=== PATIENT | male | born 1960 | race Caucasian/White ===

== ENCOUNTER 2022-03-01 08:25 | Emergency (ER) | payer SELFPAY ==
[2022-03-01 08:25] VITALS: BP 212/100; PULSE 68; RESP 18; TEMP 36.8; O2SAT 97
[2022-03-01 08:26] VITALS: BP 203/99; PULSE 67; RESP 16; TEMP 36.2; O2SAT 99; BMI 27.2
[2022-03-01 09:07] VITALS: O2SAT 98
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
[2022-03-01] MEDS: Morphine 4 MG/ML Syringe IV (10:01)
== END 2022-03-01 12:23 | disposition home or self-care (01) ==
PROVIDERS: Emergency Provider Emergency Medicine; PCP Physician Assistant; Visit Provider Emergency Medicine
DX: S20.20XA Contusion of thorax, unspecified, initial encounter (principal); F17.210 Nicotine dependence, cigarettes, uncomplicated; V89.2XXA Person injured in unspecified motor-vehicle accident, traffic, initial encounter
CPT/HCPCS: 71046; 71120; 93005; 96374; 99284; A4216

== ENCOUNTER 2025-01-25 13:36 | Inpatient (IN) | payer SELFPAY ==
[2025-01-25] VITALS (10 sets, daily range): BP systolic 129–186; BP diastolic 63–82; PULSE 80–93; RESP 16–20; TEMP 36.7–39; O2SAT 95–100; BMI 27.9
--- NOTE | 2025-01-25 13:59 | RAD_ITS ---
PROCEDURE: CHEST PA AND LATERAL 01/25/2025 REASON FOR EXAM: PRODUCTIVE COUGH, WHEEZING TECHNIQUE: Procedure Code: RADCXR Modality: DX Procedure: CHEST PA AND LATERAL COMPARISON: None. FINDINGS: LUNGS AND PLEURA: Cavity with air-fluid level in the left upper lobe measuring approximately 7.2 x 6.3 cm. No pleural effusion or pneumothorax. HEART AND MEDIASTINUM: The heart size and mediastinal contours are normal. BONES: No acute osseous abnormality. RAD/Chest PA and Lateral IMPRESSION: Left upper lobe cavity with air-fluid level, may represent an abscess, infected bleb or cavitary mass. A contrast-enhanced chest CT is recommended to further evaluate. Reading Location: [id number]
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
[2025-01-25 14:17] LABS: Hematocrit 35.6 % (40-54); Hemoglobin 11.6 g/dL (13.0-16.5); Immature Granulocytes Count 0.110 X10^3/uL (0.0-0.0); Mean Corp Hgb Conc 32.6 g/dL (32-36); Mean Corpuscular Volume 91.3 fL (80-94); Mean Platelet Vol. 9.5 fl (6.2-12.0); NRBC Flagged by Analyzer 0 % (0-5); Platelet Count 516 K/mm3 (150-450); RBC Distribution Width CV 13.4 % (11.6-14.6); RBC Distribution Width SD 45.1 fl (35.1-43.9); Red Blood Count 3.90 M/mm3 (4.6-6.2); White Blood Count 15.8 K/mm3 (4.4-11.0)
[2025-01-25] MEDS: Albuterol 2.5 MG/3 ML VIAL.NEB. INHALATION (14:28)
[2025-01-25 14:43] LABS: AST(SGOT) 17 U/L (<=37); Alanine Aminotransfer ALT/SGPT 14 U/L (<=46); Albumin, Serum 3.4 g/dL (3.4-4.8); Alkaline Phosphatase 83 U/L (40-129); Anion Gap 11 (5-15); BUN 11 mg/dL (4-19); BUN/Creat Ratio 12.9 RATIO (10-20); Calcium,Total 8.8 mg/dL (7.6-11.0); Carbon Dioxide 26.3 mmol/L (21.0-32.0); Chloride 98 mmol/L (98-108); Estimated Creatinine Clearance 106.86 ml/min (50-250); Globulin 3.9 g/dL (2.2-4.2); Glucose 162 mg/dL (70-99); Potassium 3.8 mmol/L (3.3-5.1)
--- NOTE | 2025-01-25 14:50 | CPS ---
at this time pt only wants the duoneb and 1 alb at this time. He does not like that the treatments make him cough. Told him if he wanted the other Alb to let the RN know. RN aware.
--- NOTE | 2025-01-25 15:15 | CM.ED ---
Social work Reason for referral: no PCP/insurance Referral source: case find SW identified patient's lack of PCP and insurance and need for resources. SW entered patient's room, introducing self and role at [facility]. Patient welcomed SW visit and confirmed lacking above resources. Patient accepted [facility] Provider Directory, Damaris Leon information, and how to apply for Medicaid document. Patient denied further resource needs at this time. Nikki Grant, ORDER PROCESSING MANAGER, PRECISION STRUCTURAL METAL FITTER
--- NOTE | 2025-01-25 15:20 | CT_ITS ---
PROCEDURE: CHEST WITH CONTRAST 01/25/2025 REASON FOR EXAM: SHE SUPPOSED TO BE ABSCESS VERSUS NECROTIC MASS W TECHNIQUE: Procedure Code: CTCHW Modality: CT Procedure: CHEST WITH CONTRAST Coronal and Sagittal reconstruction series were provided. CONTRAST: Isovue 370 VOLUME: 96 mL One or more dose reduction techniques were used (e.g., Automated exposure control, adjustment of the mA and/or kV according to patient size, use of iterative reconstruction technique). RADIATION DOSE SUMMARY: CTDlvol: 23 mGy DLP: 467 mGycm COMPARISON: Earlier today's chest CT. FINDINGS: Thyroid gland: Negative. Lungs: Irregular thick walled cavitary mass in the left suprahilar region measures 10.2 by 8.1 cm. Mild adjacent airspace disease. Mild emphysematous changes. No other pulmonary nodules or masses. Pleura: Negative for pleural effusion or pneumothorax. Airways: Imaged bronchi and trachea otherwisenegative. Mediastinum and mike:: Left hilar and suprahilar adenopathy noted as well measures at least 3.1 x 2.6 x 3.3 cm and partially encompasses the left upper lobe bronchus. There are scattered mediastinal lymph nodes largest in the precarinal space short axis dimension 11 mm. Slight right hilar fullness. Heart and Vasculature: Heart normal size. Mild vascular calcifications of the thoracic aorta. Coronary Artery Calcifications: Severe vascular calcifications of the coronary arteries Upper Abdomen: Imaged liver and upper abdomen negative. Hardware: None. Bones: Mild and age-appropriate generative changes of the thoracic spine. CT/Chest WITH Contrast IMPRESSION: Large left upper lobe cavitary mass with extensive left hilar adenopathy as wel l as diffuse mediastinal and right hilar fullness/adenopathy. Different considerations include cavitary necrotic lung neoplasm versus atypica l pneumonia/fungal infection. No evidence of hepatic, adrenal or definitive bony metastatic disease. Reading Location: [place] [id number]
[2025-01-25] MEDS: Ampicillin/Sulbactam 3 GM in 0.9% Normal Saline (100mL MB+) 100 ML IV (17:37)
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
--- OUTSIDE RECORDS SUMMARY | 2025-01-25 18:13 | XMS RPT_ITS | CCD ---
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 Comments Physical Numbness right leg Specialty Diagnoses / Procedures Referred By Anisha t Referred To Contact Diagnoses medically necessary appts only Procedures ANNUAL WELLNESS VISIT, (PPS), SUBSEQUENT VISIT TC medically necessary appts only Arlyn Girard APRN.MANAGER PRODUCT [address] [place] [id number] [facility] [place] [address] Referral ID Status Reason Start Date Expiration Date Visits Requested Visits Authorized [id number] Authorized Patient Cleared - Qualified 100% FAS 09/29/2023 12/28/2023 99 99 Reason Comments Results Reason Onset Date Comments Refill Request 10/27/2023 Reason Onset Date Comments Refill Request 11/18/2023 Reason Onset Date Comments Refill Request 09/13/2024 Care Teams (unrecognized sec tion and content) Welding 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 Relationship Specialty Start Date End Date Arlyn Girard APRN.MANAGER PRODUCT [address] [place] [id number] PCP - General Internal Medicine 03/12/22 Welding Technician Relationship Specialty Start Date End Date Arlyn Girard APRN.MANAGER PRODUCT [facility] [place] [address] PCP - General Internal Medicine 03/12/22 Welding Technician Relationship Specialty Start Date End Date Arlyn Girard APRN.MANAGER PRODUCT [address] [place] [address] PCP - General Internal Medicine 03/12/22 Welding Technician Relationship Specialty Start Date End Date Arlyn Girard APRN.MANAGER PRODUCT [address] [place] [address] PCP - General Internal Medicine 03/12/22 Welding Technician Relationship Specialty Start Date End Date Arlyn Girard APRN.MANAGER PRODUCT [address] [place] [address] PCP - General Internal Medicine 03/12/22 Welding Technician Relationship Specialty Start Date End Date Arlyn Girard APRN.MANAGER PRODUCT [address] [place] [address] PCP - General Internal Medicine 03/12/22 Welding Technician Relationship Specialty Start Date End Date Arlyn Girard APRN.MANAGER PRODUCT [address] [place] [address] PCP - General Internal Medicine 03/12/22 Welding Technician Relationship Specialty Start Date End Date Arlyn Girard APRN.MANAGER PRODUCT [address] [place] [address] PCP - General Internal Medicine 03/12/22 Welding Technician Relationship Specialty Start Date End Date Arlyn Girard APRN.MANAGER PRODUCT [address] [place] [phone] PCP - General Internal Medicine 03/12/22 Welding Technician Relationship Specialty Start Date End Date Arlyn Girard APRN.MANAGER PRODUCT [address] [place] [phone] PCP - General Internal Medicine 03/12/22 Welding Technician Relationship Specialty Start Date End Date Arlyn Girard APRN.MANAGER PRODUCT [address] [place] [address] PCP - General Internal Medicine 03/12/22 Welding Technician Relationship Specialty Start Date End Date Arlyn Girard APRN.MANAGER PRODUCT [address] [place], [place] [address] PCP - General Internal Medicine 03/12/22 Welding Technician Relationship Specialty Start Date End Date Arlyn Girard APRN.MANAGER PRODUCT [address] [place] [address] PCP - General Internal Medicine 03/12/22 FOR RECORDS PERTAINING TO PATIENTS WHO ARE OR HAVE BEEN ENROLLED IN A CHEMICAL DEPENDENCY/SUBSTANCEABUSE PROGRAM, SOME INFORMATION MAY BE OMITTED. This clinical summary was aggregated from multiple sources. Caution should be exercised in using it in the provision of clinical care. This summary normalizes information from multiple sources, and as a consequence, information in this document may materially change the coding, format and clinical context of patient data. In addition, data may be omitted in some cases. CLINICAL DECISIONS SHOULD BE BASED ON THE PRIMARY CLINICAL RECORDS. [employer] [facility]. provides no warranty or guarantee of the accuracy or completeness of information in this document.
[2025-01-25] MEDS: Azithromycin 500 MG in 0.9% Normal Saline (250mL Bag) 250 ML 250 MG IV (18:59)
[2025-01-25] MEDS: 0.9% Normal Saline (250mL Bag) 250 ML IV (19:00)
--- NOTE | 2025-01-25 19:33 | NURSING ---
lab notified of stat blood culture orders
[2025-01-25] MEDS: 0.9% Saline Lock 10 ML Syringe IV ×2 (20:20→22:36)
[2025-01-25] MEDS: Piperacil/Tazobactam 3.375 GM in 0.9% Normal Saline (50mL MB+) 50 ML IV (22:32)
[2025-01-26 02:32] VITALS: BP 145/73; PULSE 66; RESP 16; TEMP 36.7; O2SAT 98
[2025-01-26 05:48] LABS: Hematocrit 32.8 % (40-54); Hemoglobin 10.7 g/dL (13.0-16.5); Immature Granulocytes Count 0.050 X10^3/uL (0.0-0.0); Mean Corp Hgb Conc 32.6 g/dL (32-36); Mean Corpuscular Volume 90.6 fL (80-94); Mean Platelet Vol. 9.2 fl (6.2-12.0); NRBC Flagged by Analyzer 0 % (0-5); Platelet Count 441 K/mm3 (150-450); RBC Distribution Width CV 13.5 % (11.6-14.6); RBC Distribution Width SD 45.3 fl (35.1-43.9); Red Blood Count 3.62 M/mm3 (4.6-6.2); White Blood Count 12.5 K/mm3 (4.4-11.0)
[2025-01-26] MEDS: Piperacil/Tazobactam 3.375 GM in 0.9% Normal Saline (50mL MB+) 50 ML IV ×3 (05:50→22:32)
[2025-01-26 06:27] LABS: Anion Gap 10 (5-15); BUN 9 mg/dL (4-19); BUN/Creat Ratio 15.2 RATIO (10-20); Calcium,Total 8.6 mg/dL (7.6-11.0); Carbon Dioxide 24.1 mmol/L (21.0-32.0); Chloride 103 mmol/L (98-108); Estimated Creatinine Clearance 142.48 ml/min (50-250); Glucose 131 mg/dL (70-99); Potassium 4.2 mmol/L (3.3-5.1)
--- NOTE | 2025-01-26 11:26 | PCM.PN.HOSP ---
Reason for Visit Chief Complaint: Cough and shortness of breath Subjective Subjective Saw patient at bedside this morning. Patient was sitting back comfortably in bed, conversing normally, in no acute distress. Denied any shortness of breath or chest pain at rest. No other acute concerns this morning. Objective Data Objective Data Vital Signs: Vital Signs Temp Pulse Resp BP Pulse Ox O2 Del Method 98.1 F 66 16 145/73 H 98 Room Air 01/26/25 02:32 01/26/25 02:32 01/26/25 02:32 01/26/25 02:32 01/26/25 02:32 01/26/25 02:35 Oxygen Delivery Method Room Air Weight: 93.44 kg Body Mass Index (BMI) 27.9 Intake & Output: Intake and Output for Last 24 Hours 01/24/25 01/25/25 01/26/25 23:59 23:59 23:59 Intake Total 350 / 350 50 / 50 Balance 350 / 350 50 / 50 Lab / Micro Data 01/26/25 05:30 01/26/25 05:30 Labs: Laboratory Results - last 24 hr 01/25/25 14:03: WBC 15.8 H, RBC 3.90 L, Hgb 11.6 L, Hct 35.6 L, MCV 91.3, MCH 29.7, MCHC 32.6, RDW Std Deviation 45.1 H, RDW Coeff of Joni 13.4, Plt Count 516 H, MPV 9.5, Immature Gran % (Auto) 0.700, Neut % (Auto) 84.5 H, Lymph % (Auto) 8.6 L, Maverick % (Auto) 5.1, Eos % (Auto) 0.6, Baso % (Auto) 0.5, Absolute Neuts (auto) 13.4 H, Absolute Lymphs (auto) 1.37, Nucleated RBC % 0, Sodium 135, Potassium 3.8, Chloride 98, Carbon Dioxide 26.3, Anion Gap 11, BUN 11, Creatinine 0.84, Estim Creat Clear Calc 106.86, Est GFR (MDRD) Non-Af 98, BUN/Creatinine Ratio 12.9, Glucose 162 H, Lactic Acid 1.4, Calcium 8.8, Total Bilirubin 0.28, AST 17, ALT 14, Alkaline Phosphatase 83, Total Protein 7.3, Albumin 3.4, Globulin 3.9, Albumin/Globulin Ratio 0.9 01/26/25 05:30: WBC 12.5 H, RBC 3.62 L, Hgb 10.7 L, Hct 32.8 L, MCV 90.6, MCH 29.6, MCHC 32.6, RDW Std Deviation 45.3 H, RDW Coeff of Joni 13.5, Plt Count 441, MPV 9.2, Immature Gran % (Auto) 0.400, Neut % (Auto) 78.1 H, Lymph % (Auto) 12.9 L, Maverick % (Auto) 7.1, Eos % (Auto) 1.0, Baso % (Auto) 0.5, Absolute Neuts (auto) 9.8 H, Absolute Lymphs (auto) 1.62, Nucleated RBC % 0, Sodium 137, Potassium 4.2, Chloride 103, Carbon Dioxide 24.1, Anion Gap 10, BUN 9, Creatinine 0.63 L, Estim Creat Clear Calc 142.48, Est GFR (MDRD) Non-Af 107, BUN/Creatinine Ratio 15.2, Glucose 131 H, Calcium 8.6 Micro: Microbiology 01/26/25 07:30 Nasal Secretion MRSA (PCR) - Final 01/25/25 21:50 Mucosa - Nasopharyngeal Respiratory Panel (PCR) - Final Radiography Diagnostic Testing: Radiology Impression Chest X-Ray 01/25/25 13:59 IMPRESSION: Left upper lobe cavity with air-fluid level, may represent an abscess, infected bleb or cavitary mass. A contrast-enhanced chest CT is recommended to further evaluate. Reading Location: [facility] Chest CT 01/25/25 15:20 IMPRESSION: Large left upper lobe cavitary mass with extensive left hilar adenopathy as well as diffuse mediastinal and right hilar fullness/adenopathy. Different considerations include cavitary necrotic lung neoplasm versus atypical pneumonia/fungal infection. No evidence of hepatic, adrenal or definitive bony metastatic disease. Reading Location: [place] [address] Physical Exam Const alert, oriented x3, no apparent distress and average body habitus Constitutional Narrative: Pleasant upper middle-age male, somewhat unkempt appearing, otherwise sitting back comfortably in bed, conversing normally, in no acute distress. General Appearance: cooperative and comfortable HEENT normocephalic, head/scalp atraumatic, hearing grossly normal bilaterally, nasal mucous membranes and turbinates normal and moist oral mucous membranes Eyes PERRL, EOMs intact bilaterally and conjunctivae normal Neck full ROM Chest inspection of chest normal Resp normal respiratory effort and no use of accessory muscles Resp Narrative: Breathing comfortably on room air at rest. Diminished breath sounds in left upper lung zone, otherwise good air movement throughout with no wheezing noted. Cardio regular rate, regular rhythm, no murmurs and peripheral pulses 2+ throughout GI normal to inspection, nondistended, normoactive bowel sounds, soft to palpation, non-tender and non-distended Back/Spine normal ROM Extremity normal to inspection, full ROM and no pedal edema Skin no rashes or lesions noted Psych mental status grossly normal Assessment & Plan Assessment/Plan (1) Cavitating mass of upper lobe of left lung: PLAN: Plan Patient is a 64-year-old male who presented to [facility] ED on 01/25/2025 with persistent cough with sputum production. 1. Left upper lobe cavitary mass ? Pulmonology following. CT chest on admit showed a large left upper lobe cavitary mass with extensive left hilar adenopathy as well as diffuse mediastinal and right hilar fullness/adenopathy. Patient with leukocytosis to 15,000 on admit and fevers up to 102F noted. Per pulmonology, most concerning for a pulmonary abscess with associated mediastinal and hilar adenopathy. However, an atypical appearing lunacy cannot be fully ruled out. Infectious workup pending. Will treat with IV antibiotics for the next several days and monitor response. Will plan to transition him to a p.o. antibiotic regimen with plan for 3 additional weeks of antibiotic therapy at that time. Will then plan for repeat CT chest to reevaluate the lesion and if not resolved, will plan to discuss bronchoscopy with biopsy at that time. 2. Frequent alcohol use ? Reports drinking 6 to 7 12 ounce beers most days of the week and will occasionally drink or liquor. Denies any history of withdrawal symptoms. CIWA protocol initiated on admission and patient has not triggered CIWA to this point. Continue to monitor. 3. Tobacco dependence ? Currently smoking about half pack of cigarettes daily but has smoked up to 2 packs daily in the past. Denies need for nicotine replacement therapy on admit. Discussed cessation on discharge. 4. Hypertension ? Mildly hypertensive on admit. Continue home lisinopril. 5. Mild normocytic anemia ? Hemoglobin 11.6 on admit, down trended to 10.7 on hospital day 2 after IV fluid resuscitation. No baseline labs available. Iron studies with ferritin, B12 and folate ordered. Follow-up a.m. CBC. DVT prophylaxis: Lovenox CODE STATUS: Full code, verified Expected disposition: Home, TBD Total clinical time spent by myself addressing the patient's medical issues, reviewing all the data, and collaborating with patient's care team: 37 minutes. Charges/Coding Visit Charges Inpatient E&M: 85377 Subs Hosp L2
[2025-01-26 11:34] VITALS: BP 123/67; PULSE 63; RESP 16; TEMP 37; O2SAT 98
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
[2025-01-26] MEDS: FLU VACCINE 2025-26(6MOS UP) 45 MCG/0.5 ML SYRINGE IM (12:38)
--- NOTE | 2025-01-26 12:48 | CASEMGMT ---
KINGSTON ALBARADO Assessment: Face to Face with pt for initial transition planning/care coordination assessment. KINGSTON ALBARADO introduced self and role at [facility], pt voices understanding and consents to assessment. Pt is A&O x4 and answers all questions appropriately at this time. Pt sitting up in bed on RA with dtr at bedside. Pt agreeable to assessment with dtr present. Care providers, pharmacy, and demographics verified/updated. Admitting Dx: CIELO lesion pna vs neoplasm Strata Score: 1 PCP:Denies, pt states he received information in the ER for PCPs. Specialists:Denies Preferred Pharmacy:[facility] Insurance: Self Pay Prescription Benefit: no LNOK: Toma Polk, Living Arrangements: Pt lives with in a single story home with 3 steps to enter with a rail. Pt reports he is I in ADL/IADLs and denies concerns at home. Pt states he works over 40 hours per week. Transportation: Pt drives self and denies concerns with transportation. DME:Denies HHC/SNF: Denies hx of Pt states no concerns with going home at time of dc. Pt states no further concerns/needs. CM to follow. Advised pt to ask CM if any further questions/concerns/needs arise, voices understanding. Pt Goal: Home Plan: Home Pardeep ONOFRE CM
--- NOTE | 2025-01-26 14:43 | CASEMGMT ---
Social Work Pt admitted as self pay. SW met with pt and introduced self and role of SW. Pt confirms he does not have health insurance. Pt denies concerns with affording prescriptions at time of discharge. Pt did meet with Vashti Del [facility] and is over income for assistance programs. Pt does not currently have a PCP. SW discussed this with pt and importance of getting connected for primary care. SW attempted to offer PCP list and info on [facility]. Pt states he was given these resources in the ED. Pt denies any further concerns or needs at this time. ENEIDA Corcoran
[2025-01-26 14:49] VITALS: BP 134/66; PULSE 72; RESP 18; TEMP 36.8; O2SAT 99
[2025-01-26 17:02] LABS: Ferritin 600 ng/mL (37-417); Iron 24 ug/dL (65-175); Iron Binding Capacity,Unsat 164 ug/dL (228-428); Vitamin B12 1067 pg/mL (180-914)
[2025-01-26 18:34] LABS: Iron Binding Capacity,Total 188 ug/dL (250-450)
[2025-01-26 18:35] VITALS: BP 129/61; PULSE 69; RESP 18; TEMP 37; O2SAT 98
[2025-01-26] MEDS: Azithromycin 500 MG in 0.9% Normal Saline (250mL Bag) 250 ML 250 MG IV (21:21)
[2025-01-26 21:24] VITALS: BP 153/73; PULSE 65; RESP 16; TEMP 37.1; O2SAT 100
[2025-01-26] MEDS: MELATONIN 10 MG TABLET PO (21:34)
[2025-01-27 00:24] VITALS: BP 134/68; PULSE 64; RESP 16; TEMP 36.9; O2SAT 96
[2025-01-27] MEDS: Piperacil/Tazobactam 3.375 GM in 0.9% Normal Saline (50mL MB+) 50 ML IV ×3 (05:59→22:48)
[2025-01-27 06:03] VITALS: BP 129/65; PULSE 77; RESP 16; TEMP 36.6; O2SAT 96
--- NOTE | 2025-01-27 08:12 | PN.CC_ITS ---
Assessment & Plan Assessment/Plan (1) 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 Continue IV antimicrobial therapy for today, with tentative plans for discharge tomorrow. 2. At discharge, we will plan to transition the patient to Augmentin and doxycycline to complete an additional 3 weeks of therapy. 3. The patient will need to follow-up in the pulmonary medicine clinic after discharge. We will plan to repeat a CT scan after he has completed his antibiotic treatment course. IMPRESSIONS: 1. Abnormal CT scan/shortness of breath The findings noted on CT imaging the chest, on my review, it is most concerning for a pulmonary abscess with associated mediastinal and hilar adenopathy. However, I cannot definitively rule out the presence of an atypical appearing malignancy. Given that the patient was febrile with an elevated white blood cell count. I would advocate that we proceed with treating him with IV antimicrobials for now. I would then plan to transition him to a p.o. antibiotic regimen, with tentative plans to complete 3 additional weeks of therapy. Following this, a repeat CT chest will be obtained to determine if the lesion is resolving or if additional workup, including bronchoscopy/EBUS needs to be entertained. This note was generated with [employer] dictation software. It may contain incorrect words, spelling, and punctuation that were not noted in checking the note before signing. Subjective Subjective The patient was seen and examined at the bedside this morning. Events from the last 24 hours have been reviewed. The patient is currently afebrile, hemodynamically stable and maintaining appropriate oxygen saturations on room air. The patient reported this morning that he is feeling well. He does believe that the Tessalon Perles have helped with his cough. Objective Data Objective Data The patient's most recent lab work, culture data and imaging studies have all been personally reviewed. Vital Signs: Vital Signs Temp Pulse Resp BP Pulse Ox O2 Del Method 97.9 F 77 16 129/65 H 96 Room Air 01/27/25 06:03 01/27/25 06:03 01/27/25 06:03 01/27/25 06:03 01/27/25 06:03 01/27/25 06:03 Oxygen Delivery Method Room Air Weight: 206 lb Body Mass Index (BMI) 27.9 Intake & Output: Intake and Output for Last 24 Hours 01/25/25 01/26/25 01/27/25 23:59 23:59 23:59 Intake Total 350 / 350 1650 / 1650 500 / 500 Balance 350 / 350 1650 / 1650 500 / 500 Lab / Micro Data Attestation: I reviewed the patient's lab results. 01/26/25 05:30 01/26/25 05:30 Labs: Laboratory Results - last 24 hr 01/26/25 05:30: Hemoglobin A1c 6.3 H, Iron 24 L, TIBC 188 L, Iron Saturation 12.6, Unsaturated IBC 164 L, Ferritin 600 H, Vitamin B12 1067 H Micro: Microbiology 01/26/25 16:38 Urine, Random Legionella Antigen - Final 01/26/25 16:38 Urine, Random Streptococcus pneumoniae Antigen (M - Final 01/26/25 07:30 Nasal Secretion MRSA (PCR) - Final 01/25/25 21:50 Mucosa - Nasopharyngeal Respiratory Panel (PCR) - Final Physical Exam Const alert, oriented x3 and no apparent distress Constitutional Narrative: Sitting upright in bed eating breakfast. General Appearance: cooperative HEENT normocephalic and head/scalp atraumatic Eyes PERRL, EOMs intact bilaterally and conjunctivae normal Neck supple General: trachea midline Chest inspection of chest normal Resp normal respiratory effort Auscultation: diminished lung sounds; Negative for rales, rhonchi or wheezes Cardio regular rate and regular rhythm GI normal to inspection, nondistended, normoactive bowel sounds Extremity no clubbing, cyanosis or edema Skin no rashes or lesions noted Neuro CN's II-XII intact bilaterally, moves all extremities and no focal motor deficits Psych cooperative and affect normal Charges/Coding Visit Charges Inpatient E&M: 09500 Subs Hosp L2
[2025-01-27 09:24] VITALS: BP 120/62; PULSE 60; RESP 18; TEMP 36.6; O2SAT 98
--- NOTE | 2025-01-27 09:41 | PN.HOSP_ITS ---
Reason for Visit Chief Complaint: Cough and shortness of breath Subjective Subjective Saw patient at bedside this morning. Patient was sitting back comfortably in bed and in no acute distress. No new concerns today. Objective Data Objective Data Vital Signs: Vital Signs Temp Pulse Resp BP Pulse Ox O2 Del Method 98 F 60 18 120/62 98 Room Air 01/27/25 09:24 01/27/25 09:24 01/27/25 09:24 01/27/25 09:24 01/27/25 09:24 01/27/25 09:27 Oxygen Delivery Method Room Air Weight: 93.44 kg Body Mass Index (BMI) 27.9 Intake & Output: Intake and Output for Last 24 Hours 01/25/25 01/26/25 01/27/25 23:59 23:59 23:59 Intake Total 350 / 350 1650 / 1650 500 / 500 Balance 350 / 350 1650 / 1650 500 / 500 Lab / Micro Data 01/26/25 05:30 01/26/25 05:30 Labs: Laboratory Results - last 24 hr 01/26/25 05:30: Hemoglobin A1c 6.3 H, Iron 24 L, TIBC 188 L, Iron Saturation 12.6, Unsaturated IBC 164 L, Ferritin 600 H, Vitamin B12 1067 H Micro: Microbiology 01/26/25 16:38 Urine, Random Legionella Antigen - Final 01/26/25 16:38 Urine, Random Streptococcus pneumoniae Antigen (M - Final 01/26/25 07:30 Nasal Secretion MRSA (PCR) - Final 01/25/25 21:50 Mucosa - Nasopharyngeal Respiratory Panel (PCR) - Final Physical Exam Const alert, oriented x3, no apparent distress and average body habitus Constitutional Narrative: Pleasant upper middle-age male, sitting back comfortably in bed, conversing normally, in no acute distress. General Appearance: cooperative and comfortable HEENT normocephalic, head/scalp atraumatic, hearing grossly normal bilaterally, nasal mucous membranes and turbinates normal and moist oral mucous membranes Eyes PERRL, EOMs intact bilaterally and conjunctivae normal Neck full ROM Chest inspection of chest normal Resp normal respiratory effort and no use of accessory muscles Resp Narrative: Breathing comfortably on room air at rest. Diminished breath sounds in left upper lung zone, otherwise good air movement throughout with no wheezing noted. Stable. Cardio regular rate, regular rhythm, no murmurs and peripheral pulses 2+ throughout GI normal to inspection, nondistended, normoactive bowel sounds, soft to palpation, non-tender and non-distended Back/Spine normal ROM Extremity normal to inspection, full ROM and no pedal edema Skin no rashes or lesions noted Psych mental status grossly normal Assessment & Plan Assessment/Plan (1) Cavitating mass of upper lobe of left lung: PLAN: Plan Patient is a 64-year-old male who presented to [facility] ED on 01/25/2025 with persistent cough with sputum production. 1. Left upper lobe cavitary mass ? Pulmonology following. CT chest on admit showed a large left upper lobe cavitary mass with extensive left hilar adenopathy as well as diffuse mediastinal and right hilar fullness/adenopathy. Patient with leukocytosis to 15,000 on admit and fevers up to 102F noted. Per pulmonology, most concerning for a pulmonary abscess with associated mediastinal and hilar adenopathy. However, an atypical appearing lunacy cannot be fully ruled out. Infectious workup negative to this point, blood cultures pending. Plan for treatment IV antibiotics through tomorrow, then if he remains stable will plan for discharge home tomorrow on an additional 3 weeks of p.o. Augmentin and doxycycline. Will then plan for repeat CT chest to reevaluate the lesion and if not resolved, will plan to discuss bronchoscopy with biopsy at that time. 2. Frequent alcohol use ? Reports drinking 6 to 7 12 ounce beers most days of the week and will occasionally drink or liquor. Denies any history of withdrawal symptoms. CIWA protocol initiated on admission and patient has not triggered CIWA to this point. Continue to monitor. 3. Tobacco dependence ? Currently smoking about half pack of cigarettes daily but has smoked up to 2 packs daily in the past. Denies need for nicotine replacement therapy on admit. Discussed cessation on discharge. 4. Hypertension ? Mildly hypertensive on admit. Continue home lisinopril. 5. Mild normocytic anemia ? Hemoglobin 11.6 on admit, down trended to 10.7 on hospital day 2 after IV fluid resuscitation. No baseline labs available. Anemia studies with elevated ferritin of 600 consistent with anemia of chronic disease. No need to monitor further CBCs while inpatient. DVT prophylaxis: Lovenox CODE STATUS: Full code, verified Expected disposition: Home, 1 to 2 days Total clinical time spent by myself addressing the patient's medical issues, reviewing all the data, and collaborating with patient's care team: 35 minutes. Charges/Coding Visit Charges Inpatient E&M: 20081 Subs Hosp L2
[2025-01-27] MEDS: 0.9% Saline Lock 10 ML Syringe IV (14:09)
[2025-01-27 14:17] VITALS: BP 125/69; PULSE 64; RESP 16; TEMP 36.5; O2SAT 97
[2025-01-27 17:48] VITALS: BP 119/65; PULSE 65; RESP 18; TEMP 36.9; O2SAT 95
[2025-01-27] MEDS: Azithromycin 500 MG in 0.9% Normal Saline (250mL Bag) 250 ML 250 MG IV (21:02)
[2025-01-27 21:09] VITALS: BP 148/77; PULSE 58; RESP 16; TEMP 36.5; O2SAT 98
[2025-01-28 02:17] VITALS: BP 133/71; PULSE 61; RESP 16; TEMP 36.6; O2SAT 97
[2025-01-28] MEDS: Piperacil/Tazobactam 3.375 GM in 0.9% Normal Saline (50mL MB+) 50 ML IV (05:14)
[2025-01-28 06:05] LABS: Hematocrit 32.0 % (40-54); Hemoglobin 10.6 g/dL (13.0-16.5); Mean Corp Hgb Conc 33.1 g/dL (32-36); Mean Corpuscular Volume 90.4 fL (80-94); Mean Platelet Vol. 9.8 fl (6.2-12.0); Platelet Count 397 K/mm3 (150-450); RBC Distribution Width CV 13.4 % (11.6-14.6); RBC Distribution Width SD 44.6 fl (35.1-43.9); Red Blood Count 3.54 M/mm3 (4.6-6.2); White Blood Count 9.4 K/mm3 (4.4-11.0)
[2025-01-28 06:52] LABS: Anion Gap 9 (5-15); BUN 11 mg/dL (4-19); BUN/Creat Ratio 19.0 RATIO (10-20); Calcium,Total 8.4 mg/dL (7.6-11.0); Carbon Dioxide 22.3 mmol/L (21.0-32.0); Chloride 106 mmol/L (98-108); Estimated Creatinine Clearance 160.29 ml/min (50-250); Glucose 122 mg/dL (70-99); Potassium 4.0 mmol/L (3.3-5.1)
[2025-01-28 08:15] VITALS: BP 137/79; PULSE 61; RESP 16; TEMP 36.9; O2SAT 97
--- NOTE | 2025-01-28 09:42 | DS.PCM_ITS ---
Providers Date of Admission: 01/25/25 Date of Discharge: 01/28/25 Primary Care Physician: Sonal Primary Care Phys Consultations 01/25/25 18:16 Consult: Application Consultant / Pulmonary Medicine Routine Consulting Provider: [facility] Reason for Consult: cavitary CIELO lesion EMERGENT Consult: No MD Notified: Yes Date Notified: 01/25/25 Time Notified: 18:02 Method of Notification: Verbal Reason For Visit: LEFT UPPER LOBE LESION PNEUMONIA VERSUS NEOPLASM Diagnosis Discharge Diagnosis (1) Cavitating mass of upper lobe of left lung: Status: Acute Code(s): J98.4 - Other disorders of lung Medications at Discharge Home Medications lisinopril 40 mg tablet 40 mg PO DAILY 01/25/25 amoxicillin 875 mg-potassium clavulanate 125 mg tablet 1 tab PO BID 21 days #42 tabs 01/28/25 benzonatate 100 mg capsule 100 mg PO Q4H PRN PRN Cough 5 days #30 caps 01/28/25 doxycycline hyclate 100 mg tablet 100 mg PO BID 21 days #42 tabs 01/28/25 Hospital Course Operations None Procedures EKG and - (Chest x-ray, CT chest) Summary of Care Provided Minutes Spent on Discharge: 38 Hospital Course: Patient is a 64-year-old male who presented to [facility] ED on 01/25/2025 with persistent cough with sputum production. Hospital course as noted below. Patient discharged home in stable condition on 01/28. 1. Left upper lobe cavitary mass ? Pulmonology following. CT chest on admit showed a large left upper lobe cavitary mass with extensive left hilar adenopathy as well as diffuse mediastinal and right hilar fullness/adenopathy. Patient with leukocytosis to 15,000 on admit and fevers up to 102F noted. Per pulmonology, most concerning for a pulmonary abscess with associated mediastinal and hilar adenopathy. However, an atypical appearing lunacy cannot be fully ruled out. Infectious workup negative to this point, blood cultures pending. Treated with broad- spectrum IV antibiotic while inpatient. Stable for discharge home on 01/28 and per pulmonology will treat with an additional 3 weeks of p.o. Augmentin and doxycycline. Will then plan for repeat CT chest to reevaluate the lesion and if not resolved, will plan to discuss bronchoscopy with biopsy at that time. 2. Frequent alcohol use ? Reports drinking 6 to 7 12 ounce beers most days of the week and will occasionally drink or liquor. Denies any history of withdrawal symptoms. CIWA protocol initiated on admission and did not trigger CIWA protocol during the hospitalization. 3. Tobacco dependence ? Currently smoking about half pack of cigarettes daily but has smoked up to 2 packs daily in the past. Denied need for nicotine replacement therapy on admit. Discussed cessation on discharge. 4. Hypertension ? Mildly hypertensive on admit. Continue home lisinopril. 5. Mild normocytic anemia ? Hemoglobin 11.6 on admit, down trended to 10.7 on hospital day 2 after IV fluid resuscitation. No baseline labs available. Anemia studies with elevated ferritin of 600 consistent with anemia of chronic disease. No need to monitor further CBCs while inpatient. Total clinical time spent by myself addressing the patient's medical issues, reviewing all the data, and collaborating with patient's care team: 38 minutes. Physical Exam Const alert, oriented x3, no apparent distress and average body habitus Constitutional Narrative: Pleasant upper middle-age male, sitting back comfortably in bed, conversing normally, in no acute distress. General Appearance: cooperative and comfortable HEENT normocephalic, head/scalp atraumatic, hearing grossly normal bilaterally, nasal mucous membranes and turbinates normal and moist oral mucous membranes Eyes PERRL, EOMs intact bilaterally and conjunctivae normal Neck full ROM Chest inspection of chest normal Resp normal respiratory effort and no use of accessory muscles Resp Narrative: Breathing comfortably on room air at rest. Diminished breath sounds in left upper lung zone, otherwise good air movement throughout with no wheezing noted. Stable. Cardio regular rate, regular rhythm, no murmurs and peripheral pulses 2+ throughout GI normal to inspection, nondistended, normoactive bowel sounds, soft to palpation, non-tender and non-distended Back/Spine normal ROM Extremity normal to inspection, full ROM and no pedal edema Skin no rashes or lesions noted Psych mental status grossly normal Weight / BMI Weight Weight: 93.44 kg Body Mass Index (BMI) 27.9 ABG / Lab / Microbiology Data 01/28/25 05:07 01/28/25 05:07 Laboratory: Laboratory Results - last 24 hr 01/28/25 05:07: WBC 9.4, RBC 3.54 L, Hgb 10.6 L, Hct 32.0 L, MCV 90.4, MCH 29.9, MCHC 33.1, RDW Std Deviation 44.6 H, RDW Coeff of Joni 13.4, Plt Count 397, MPV 9.8, Sodium 138, Potassium 4.0, Chloride 106, Carbon Dioxide 22.3, Anion Gap 9, BUN 11, Creatinine 0.56 L, Estim Creat Clear Calc 160.29, Est GFR (MDRD) Non-Af 111, BUN/Creatinine Ratio 19.0, Glucose 122 H, Calcium 8.4 Microbiology: Microbiology 01/25/25 19:21 Blood Culture (Wb) - Anticubital Right Blood Culture - Preliminary No growth in 48 hours. 01/25/25 19:25 Blood Culture (Wb) - Right Hand Blood Culture - Preliminary No growth in 48 hours. 01/26/25 16:38 Urine, Random Legionella Antigen - Final 01/26/25 16:38 Urine, Random Streptococcus pneumoniae Antigen (M - Final 01/26/25 07:30 Nasal Secretion MRSA (PCR) - Final 01/25/25 21:50 Mucosa - Nasopharyngeal Respiratory Panel (PCR) - Final D/C Instructions DC O2, CPAP, BIPAP Needs Home O2 Discharge instructions: No Meaningful Use Info Meaningful Use Meaningful Use Diagnoses (Choose all that apply): None applicable Discharge Plan Admission Admit Date/Time: 01/25/25 17:50 Primary Reason for Your Visit: shortness of breath and cough Attending Provider: Rashi Yost Primary Care Provider: Care Physician,No Primary Consulting Providers: Bacilio Garcia; Cayden Amaya; Ti Hernandez; Juaquin Oquendo; Hugo Oneal; Alina Peterson; Bubba Holly; Elizabeth Peralta; Tello Morales; Junie Foster; Jesus Corbett; Dhruv Dickson; Sheila Thomas; Hossein Hernandez; Sean Hastings; Mode Banegas; Comfort Mitchell; Rosalina Mendoza; Sandra Alas; Cathleen Arguelles; Chloe Ward; Tanner Barlow; Maria Teresa Youssef; Amna Trotter; Sharon Mcnulty; Lisa Hammer; Maria Teresa Justice; Richie Tian; Eder Hawthorne; Jarad Gruber; Nick Espinosa; Casey Kenyon; Bola Dacosta; Castillo Cabrera; Kyra Esteban; Roma Adams; Wes Pérez; Andres Julio; Oz Benedict; Rolan Barron; Neftaly Ruvalcaba; Sae Levi; Abhishek Reece; Nicole Gonzalez NP; Marlene Carpenter; Jordyn Diamond Discharge Orders/Prescriptions Prescriptions: New benzonatate 100 mg Capsule 100 mg PO Q4H PRN PRN (Reason: Cough) 5 Days Qty: 30 0RF amoxicillin-pot clavulanate 875-125 mg tablet 1 tab PO BID 21 Days Qty: 42 0RF doxycycline hyclate 100 mg tablet 100 mg PO BID 21 Days Qty: 42 0RF Continued lisinopril 40 mg tablet 40 mg PO DAILY Referrals / Follow Up: Juaquin Oquendo DO [Med Staff - Active Staff, Pulmonary Medicine] Care Physician,No Primary [Primary Care Provider, Medical] Disposition Disposition (needs filled in before D/C Order can be placed): Home, Self Care Charges/Coding Visit Charges Inpatient E&M: 18948 Disch Hosp >30min
--- NOTE | 2025-01-28 09:42 | DCINST_ITS ---
Discharge Instructions DC O2, CPAP, BIPAP needs Home O2 Discharge instructions: No Dressing / Incision Discharge Activity: No Restrictions Follow Up Care Test Results: Test results from this visit will be discussed in further detail at your follow- up appointment, if applicable. Discharge Plan Admission Admit Date/Time: 01/25/25 17:50 Primary Reason for Your Visit: shortness of breath and cough Attending Provider: Rashi Yost Primary Care Provider: Care Physician,No Primary Consulting Providers: Bacilio Garcia; Cayden Amaya; Ti Hernandez; Juaquin Oquendo; Hugo Oneal; Alina Peterson; Bubba Holly; Elizabeth Peralta; Tello Morales; Junie Foster; Jesus Corbett; Dhruv Dickson; Sheila Thomas; Hossein Hill; Sean Hastings; Mode Banegas; Comfort Mitchell; Rosalina Mendoza; Sandra Alas; Cathleen Arguelles; Chloe Ward; Tanner Barlow; Maria Teresa Youssef; Amna Trotter; Sharon Mcnulty; Lisa Hammer; Maria Teresa Justice; Richie Tian; Eder Hawthorne; Jarad Gruber; Nick Espinosa; Kostas,Casey; Praneeth,Bola; Castillo Cabrera; Kyra Esteban; Roma Adams; Elisa,Samestella; Andres Julio; Pancroderick,Oz; Turfe,Rolan; Jordon,Neftaly; Amita,Sae; Abhishek Reece; Nicole Gonzalez NP; Marlene Carpenter; Jordyn Diamond Discharge Orders/Prescriptions Prescriptions: New benzonatate 100 mg Capsule 100 mg PO Q4H PRN PRN (Reason: Cough) 5 Days Qty: 30 0RF amoxicillin-pot clavulanate 875-125 mg tablet 1 tab PO BID 21 Days Qty: 42 0RF doxycycline hyclate 100 mg tablet 100 mg PO BID 21 Days Qty: 42 0RF Continued lisinopril 40 mg tablet 40 mg PO DAILY Referrals / Follow Up: Juaquin Oquendo DO [Med Staff - Active Staff, Pulmonary Medicine] Care Physician,No Primary [Primary Care Provider, Medical] Disposition Disposition (needs filled in before D/C Order can be placed): Home, Self Care
--- NOTE | 2025-01-28 10:53 | PHA.DC.MR.R ---
Pharmacy [place] Med Reconciliation Pharmacy Service has performed discharge medication reconciliation for this patient. The patient's discharge medication list was reviewed for discrepancies and discrepancies were resolved. Medications at Discharge Home Medications lisinopril 40 mg tablet 40 mg PO DAILY 01/25/25 amoxicillin 875 mg-potassium clavulanate 125 mg tablet 1 tab PO BID 21 days #42 tabs 01/28/25 benzonatate 100 mg capsule 100 mg PO Q4H PRN PRN Cough 5 days #30 caps 01/28/25 doxycycline hyclate 100 mg tablet 100 mg PO BID 21 days #42 tabs 01/28/25
[2025-01-28 15:08] LABS: Folate, Hemolysate Test 475.0 ng/mL (Not Estab.); Folate, RBC (Hct) Test 32.4 % (37.5-51.0); Folates, RBC Test 1466 ng/mL (>498)
== END 2025-01-28 10:45 | disposition home or self-care (01) | DRG 206 ==
LOC: ED 14:04 → MS3 18:11
PROVIDERS: Admitting Provider Internal Medicine; Emergency Provider Emergency Medicine; Visit Provider Hospitalist
DX: J98.4 Other disorders of lung (principal); D63.8 Anemia in other chronic diseases classified elsewhere; I10 Essential (primary) hypertension; D72.829 Elevated white blood cell count, unspecified; F17.210 Nicotine dependence, cigarettes, uncomplicated; F10.90 Alcohol use, unspecified, uncomplicated; R73.9 Hyperglycemia, unspecified; Z79.899 Other long term (current) drug therapy
CPT/HCPCS: 36415; 71046; 71260; 80048; 80053; 82607; 82728; 82747; 83036; 83540; 83550; 83605; 85014; 85025; 85027; 87040; 87449; 87633; 87641; 94640; 94668; 99285; 99406; Q9967; A4216; J0295

== ENCOUNTER 2025-02-08 12:37 | Emergency (ER) | payer SELFPAY ==
[2025-02-08 12:40] VITALS: BP 155/90; PULSE 94; RESP 16; TEMP 36.4; O2SAT 99; BMI 26.0
[2025-02-08 13:02] VITALS: O2SAT 97
--- NOTE | 2025-02-08 13:33 | RAD_ITS ---
PROCEDURE: CHEST 1 VIEW (PORTABLE) 02/08/2025 REASON FOR EXAM: COUGH, HEMEOPTYSIS TECHNIQUE: Frontal view of the chest. COMPARISON: 01/25/2025. FINDINGS: Increased opacity of the left lung apex which may represent a cavitary mass. No other consolidation. No acute osseous abnormalities. The heart is normal in size. RAD/Chest 1 View (Portable) IMPRESSION: Pulmonary findings as above. Reading Location: [id number]
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
[2025-02-08 13:41] VITALS: BP 138/90; PULSE 85; RESP 17; TEMP 36.8; O2SAT 97
[2025-02-08 14:00] VITALS: BP 148/81; PULSE 81; RESP 17; TEMP 36.8; O2SAT 95
[2025-02-08 14:01] LABS: Hematocrit 36.9 % (40-54); Hemoglobin 12.4 g/dL (13.0-16.5); Immature Granulocytes Count 0.040 X10^3/uL (0.0-0.0); Mean Corp Hgb Conc 33.6 g/dL (32-36); Mean Corpuscular Volume 88.5 fL (80-94); Mean Platelet Vol. 9.9 fl (6.2-12.0); NRBC Flagged by Analyzer 0 % (0-5); Platelet Count 346 K/mm3 (150-450); RBC Distribution Width CV 13.7 % (11.6-14.6); RBC Distribution Width SD 44.3 fl (35.1-43.9); Red Blood Count 4.17 M/mm3 (4.6-6.2); White Blood Count 11.0 K/mm3 (4.4-11.0)
[2025-02-08 14:15] LABS: Anion Gap 11 (5-15); BUN 8 mg/dL (4-19); BUN/Creat Ratio 13.3 RATIO (10-20); Calcium,Total 9.2 mg/dL (7.6-11.0); Carbon Dioxide 24.2 mmol/L (21.0-32.0); Chloride 103 mmol/L (98-108); Estimated Creatinine Clearance 136.05 ml/min (50-250); Glucose 97 mg/dL (70-99); Potassium 4.0 mmol/L (3.3-5.1)
[2025-02-08 15:01] VITALS: BP 148/80; PULSE 81; RESP 14; TEMP 36.9; O2SAT 95
--- OUTSIDE RECORDS SUMMARY | 2025-02-08 19:02 | XMS RPT_ITS | CCD ---
Author Organization [facility] Care Team Providers Care Dress Marker Name Role Phone Shaji Arlyn TOLEDO Primary Care Provider SERENA LOWERY Referring Unavailable GIGI BRICE Primary Care Unavailable MISAEL BRICEA Chen Primary Care Unavailable SERENA LOWERY Attending Unavailable Marlene Carpenter Attending Unavailable Care Physician, No Primary Referring Unava ilable Care Physician, No Primary Primary Care Unava ilable Jordyn Diamond Admitting Unavailable Rashi Yost Attending Unavailable Care Physician, No Primary Primary Care Unava ilable Bacilio Garcia Consulting Unavailable Cayden Amaya Consulting Unavailable Ti Hernandez Consulting Unavailable Juaquin Oquendo Consulting Unavailable Donna Oneal Consulting Unavailable Alina Peterson Consulting Unavailable Bubba Holly Consulting Unavailable Elizabeth Peralta Consulting Unavailable Tello Morales Consulting Unavailable Junie Foster Consulting Unavailab Jesus Ambrocio Consulting Unavailable Dhruv Dickson Consulting Unavailable Sheila Thomas Consulting Unavailable Hossein Galindo Consulting UnavailSean More Consulting Unavailable Mode Banegas Consulting Unavailable Comfort Mitchell Consulting Unavailable Rosalina Mendoza Consulting Unavailable Sandra Alas Consulting Unavailable Cathleen Arguelles Consulting Unavailable Sylvia Mustafizsean Consulting UnavailTanner Gurrola Consulting Unavailable Maria Teresa Youssef Consulting Unavailable Amna Trotter Consulting Unavailable Sharon Mcnulty Consulting Unavailable Lisa Hammer Consulting Unavailable Maria Teresa Justice Consulting Unavailable Richie Tian Consulting Unavailable Christoph Eder Consulting Unavailable Jarad Gruber Consulting Unavailable Nick Holloway Consulting Unav ailable Kostas, Casey Consulting Unavailable Dhesi, Bola Consulting Unavailable Cabrera, Keshajoy Consulting Unavailable Malcom, Soleyah Consulting Unavailable Hegab, Roma Consulting Unavailable Mawari, Samih Consulting Unavailable Fernstrom, Andres Consulting Unavailable Panchabhai, Oz Consulting Unavailable Turfe, Rolan Consulting Unavailable Jordon, Neftaly Consulting Unavailable Kuppuswamy, Vasanthan Consulting UnavailAbhishek Nicole Consulting Unavailable Lisa YANEZ, Nicole Consulting Unavailable Marlene Carpenter Consulting Unavailable Jordyn Dimaond Consulting Unavailable Rashi Yost Consulting Unavailable Rashi Yost Attending Unavailable Bacilio Garcia Consulting Unavailable Jordyn Diamond Admitting Unavailable Care Physician, No Primary Primary Care Unava ilable Cayden Amaya Consulting Unavailable Ti Hernandez Consulting Unavailable Juaquin Oquendo Consulting Unavailable Donna Oneal Consulting Unavailable Alina Peterson Consulting Unavailable Bubba Holly Consulting Unavailable Elizabeth Peralta Consulting Unavailable Tello Morales Consulting Unavailable Junie Foster Consulting UnavailJesus Tavares Consulting Unavailable Dhruv Dickson Consulting Unavailable Sheila Thomas Consulting Unavailable Hossein Galindo Consulting UnavailSean More Consulting Unavailable Mode Banegas Consulting Unavailable Comfort Mitchell Consulting Unavailable Rosalina Mendoza Consulting Unavailable Sandra Alas Consulting Unavailable Blane Cathleen Consulting Unavailable Sylvia Mustafizur Consulting UnavailTanner Gurrola Consulting Unavailable Mikael, Morel Consulting Unavailable Amna Trotter Consulting Unavailable Sharon Mcnulty Consulting Unavailable Lisa Hammer Consulting Unavailable Vinh, Morel Consulting Unavailable Richie Tian Consulting Unavailable Christoph, Eder Consulting Unavailable Jarad Gruber Consulting Unavailable Nick Holloway Consulting Unav ailable Kostas, Casey Consulting Unavailable Dhesi, Bola Consulting Unavailable Cabrera, Sujoy Consulting Unavailable Malcom, Soleyah Consulting Unavailable Hegab, Roma Consulting Unavailable Mawari, Samih Consulting Unavailable Fernstrom, Andres Consulting Unavailable Panchabhai, Oz Consulting Unavailable Turfe, Rolan Consulting Unavailable Jordon, Neftaly Consulting Unavailable Kuppuswamy, Vasanthan Consulting UnavailAbhishek Nicole Consulting Unavailable Lisa CHIEF SERVICE OBSERVER, Nicole Consulting Unavailable Marlene Carpenter Consulting Unavailable Jordyn Diamond Consulting Unavailable Jordyn Diamond Attending Unavailable Juaquin Oquendo Attending Unavailable Jordyn Diamond Referring Unavailable Medications Current Medications Medication Drug Class(es) [...] Benign essential hypertension; Translations: [Essential (primary) hypertension] Onset: 02-07-2025 Chronic Fever of unknown origin (1 source) Fever, unspecified; Translations: [Fever, unspecified fever cause] Onset: 01-07-2025 Episodic Nonspecific chest pain (3 sources) Pain of sternum; Translations: [Other chest pain] Episodic Nutritional deficiencies (1 source) Vitamin D [...] [Shortness of breath] Onset: 01-07-2025 Episodic Other lower respiratory disease (2 sources) Other disorders of lung; Translations: [Other disorders of lung] Onset: 02-07-2025 Episodic Other nervous system disorders (3 sources) [...] [Family history of diabetes mellitus] 10-20-2007 Episodic Residual codes; unclassified (2 sources) Tobacco use; Translations: [Tobacco use] Onset: 02-07-2025 Episodic Spondylosis; intervertebral disc disorders; other back [...] Name Value Interpretation Reference Range Facil ity Culture, Blood (WB)on 2024 CUB List Antibiotics Last 48 Hours? see MAR blood cultures x2 . temp is 102.2 No growth in 5 days. [facility] Comment on above: Performed By: #### M 300.4600, M300.4500 #### [facility] [place], [address] CUB List Antibiotics Last 48 Hours? see MAR blood cultures x2. temp 102.2 No growth in 5 days. Normal [facility] Comment on above: Performed By: #### M 200.1000 #### [facility] [address] [place], [address] Basic Metabolic Profile (BMP )on 01-30-2025 BUN Normal -19 [facility] Comment on above: Result Comment: Canc elled via OM: Order cancelled - Patient discharged Performed By: #### M 300.4600, M300.4500 #### [facility] [address] [place], [address] BUN/CRE Normal 10- [facility] Comment on above: Result Comment: Canc elled via OM: Order cancelled - Patient discharged Performed By: #### M 300.4600, M300.4500 #### [facility] [address] [place], [address] Calcium Normal 7.6-11.0 [facility] Comment on above: Result Comment: Canc elled via OM: Order cancelled - Patient discharged Performed By: #### M 300.4600, M300.4500 #### [facility] [address] [place], [address] CL Normal 98-108 [facility] Comment on above: Result Comment: Canc elled via OM: Order cancelled - Patient discharged Performed By: #### M 300.4600, M300.4500 #### [facility] [address] [place], [address] CO2 Normal 21.0-32.0 [facility] Comment on above: Result Comment: Canc elled via OM: Order cancelled - Patient discharged Performed By: #### M 300.4600, M300.4500 #### [facility] [address] [place], [address] CREAT,SERUM Normal 0.70-1.20 [facility] Comment on above: Result Comment: Canc elled via OM: Order cancelled - Patient discharged Performed By: #### M 300.4600, M300.4500 #### [place] [facility] [address] [place], [address] eGFR Normal >60 [facility] Comment on above: Result Comment: Canc elled via OM: Order cancelled - Patient discharged Performed By: #### M 300.4600, M300.4500 #### [facility] [address] [place], [address] GAP Normal 5-15 [facility] Comment on above: Result Comment: Canc elled via OM: Order cancelled - Patient discharged Performed By: #### M 300.4600, M300.4500 #### [facility] [address] [place], [address] GLU Normal 70-99 [facility] Comment on above: Result Comment: Canc elled via OM: Order cancelled - Patient discharged Performed By: #### M 300.4600, M300.4500 #### [facility] [address] [place], [address] Potassium Normal 3.3-5.1 [facility] Comment on above: Result Comment: Canc elled via OM: Order cancelled - Patient discharged Performed By: #### M 300.4600, M300.4500 #### [facility] [address] [place], [address] Basic Metabolic Profile (BMP) Normal 133-145 [facility] Comment on above: Result Comment: Canc elled via OM: Order cancelled - Patient discharged Performed By: #### M 300.4600, M300.4500 #### [facility] [address] [place], [address] CBC-Complete Blood Cnt No Di ffon 01-30-2025 HCT Normal 40-54 [facility] Comment on above: Result Comment: Canc elled via OM: Order cancelled - Patient discharged Performed By: #### M 300.4600, M300.4500 #### [facility] [address] [place], [address] HGB Normal 13.0-16.5 [facility] Comment on above: Result Comment: Canc elled via OM: Order cancelled - Patient discharged Performed By: #### M 300.4600, M300.4500 #### [facility] [address] [place], [address] MCH Normal 27.0-32.0 [facility] Comment on above: Result Comment: Canc elled via OM: Order cancelled - Patient discharged Performed By: #### M 300.4600, M300.4500 #### [facility] [address] [place], [address] MCHC Normal 32-36 [facility] Comment on above: Result Comment: Canc elled via OM: Order cancelled - Patient discharged Performed By: #### M 300.4600, M300.4500 #### [facility] [address] [place], [address] MCV Normal 80-94 [facility] Comment on above: Result Comment: Canc elled via OM: Order cancelled - Patient discharged Performed By: #### M 300.4600, M300.4500 #### [facility] [address] [place], [address] PLT Normal 150-450 [facility] Comment on above: Result Comment: Canc elled via OM: Order cancelled - Patient discharged Performed By: #### M 300.4600, M300.4500 #### [facility] [address] [place], [address] RBC Normal 4.6-6.2 [facility] Comment on above: Result Comment: Canc elled via OM: Order cancelled - Patient discharged Performed By: #### M 300.4600, M300.4500 #### [facility] [address] [place], [address] RDW CV Normal 11.6-14.6 [facility] Comment on above: Result Comment: Canc elled via OM: Order cancelled - Patient discharged Performed By: #### M 300.4600, M300.4500 #### [facility] [address] [place], [address] RDW SD Normal 35.1-43.9 [facility] Comment on above: Result Comment: Canc elled via OM: Order cancelled - Patient discharged Performed By: #### M 300.4600, M300.4500 #### [facility] [address] [place], [address] WBC Normal 4.4-11.0 [facility] Comment on above: Result Comment: Canc elled via OM: Order cancelled - Patient discharged Performed By: #### M 300.4600, M300.4500 #### [facility] [address] [place], [address] Basic Metabolic Profile (BMP )on 01-28-2025 BUN/CRE 19.0 RATIO Normal - [facility] Comment on above: Performed By: #### L 500.2500 #### [facility] [address] [place], [address] Calcium [Mass/Vol] 8.4 mg/dL Normal 7.6-11.[address] [facility] Comment on above: Performed By: #### L 500.2500 #### [facility] [address] [place], [address] Chloride [Moles/Vol] 106 mmol/L Normal 98-108 [facility] Comment on above: Performed By: #### L 500.2500 #### [facility] [address] [place], [address] CO2 [Moles/Vol] 22.3 mmol/L Normal 21.0-32.0 [facility] Comment on above: Performed By: #### L 500.2500 #### [facility] [address] [place], [address] Creatinine [Mass/Vol] 0.56 mg/dL Low 0.70-1.20 [facility] Comment on above: Performed By: #### L 500.2500 #### [facility] [address] [place], [address] ECRCL 160.29 ml/min Normal 50-250 [facility] Comment on above: Performed By: #### L 500.2500 #### [facility] [address] [place], [address] GAP 9 Normal 5-15 [facility] Comment on above: Performed By: #### L 500.2500 #### [facility] [address] [place], [address] GFR/1.73 sq M.predicted among non-blacks MDRD (S/P/Bld) [Vol rate/Area] 111 mL/min/{1.73_m2} Normal >60 [facility] Comment on above: Result Comment: mL/m in/1.73m2 CKD-EPI Creatinine Equation (2020) Performed By: #### L 500.2500 #### [facility] [address] [place], [address] Glucose [Mass/Vol] 122 mg/dL High 70-[address] [facility] Comment on above: Performed By: #### L 500.2500 #### [facility] [address] [place], [address] Potassium [Moles/Vol] 4.0 mmol/L Normal 3.3-5.1 [facility] Comment on above: Performed By: #### L 500.2500 #### [facility] [address] [place], [address] Sodium [Moles/Vol] 138 mmol/L Normal 133-[address] [facility] Comment on above: Performed By: #### L 500.2500 #### [facility] [address] [place], [address] Urea nitrogen [Mass/Vol] 11 mg/dL Normal 4-19 [facility] Comment on above: Performed By: #### L 500.2500 #### [facility] [address] [place], [address] CBC-Complete Blood Cnt No Di ffon 01-28-2025 Erythrocyte distribution width (RBC) [Ratio] 13.4 % Normal 11.6-14.6 [facility] Comment on above: Performed By: #### L 100.0500 #### [facility] [address] [place], [address] Hematocrit (Bld) [Volume fraction] 32.0 % Low 40-54 [facility] Comment on above: Performed By: #### L 100.0500 #### [facility] [address] [place], [address] Hemoglobin (Bld) [Mass/Vol] 10.6 g/dL Low 13.0-16.5 [facility] Comment on above: Performed By: #### L 100.0500 #### [facility] [address] [place], [address] MCH (RBC) [Entitic mass] 29.9 pg Normal 27.0-32.0 [facility] Comment on above: Performed By: #### L 100.0500 #### [facility] [address] [place], [address] MCHC (RBC) [Mass/Vol] 33.1 g/dL Normal 32-36 [facility] Comment on above: Performed By: #### L 100.0500 #### [facility] [address] [place], [address] MCV (RBC) [Entitic vol] 90.4 fL Normal 80-94 [facility] Comment on above: Performed By: #### L 100.0500 #### [facility] [address] [place], [address] Platelet mean volume (Bld) [Entitic vol] 9.8 fL Normal 6.2-12.0 [facility] Comment on above: Performed By: #### L 100.0500 #### [facility] [address] [place], [address] Platelets (Bld) [#/Vol] 397 10*3/uL Normal 150-450 [facility] Comment on above: Performed By: #### L 100.0500 #### [facility] [address] [place], [address] RBC (Bld) [#/Vol] 3.54 10*6/uL Low 4.6-6.2 [facility] Comment on above: Performed By: #### L 100.0500 #### [facility] [address] [place], [address] RDW SD 44.6 fl High 35.1-43.9 [facility] Comment on above: Performed By: #### L 100.0500 #### [facility] [address] [place], [address] WBC (Bld) [#/Vol] 9.4 10*3/uL Normal 4.4-11.[address] [facility] Comment on above: Performed By: #### L 100.0500 #### [facility] [address] [place], [address] Discharge Instructionon 01-06 Discharge Instruction [facility] Medical Records Department [address] [place] [address] Instructions for Home/Discharge Instructions 01/28/25 0942 MR#: [id number] Acct: [id number] Name: DONNA PRADO Rep #: [id number] : 1960 64 From: Rashi Yost DO PCP: Gurvinder Physician,Sonal Primary Status:ADM IN Discharge Instructions DC O2, CPAP, BIPAP needs Home O2 Discharge instructions: No Dressing / Incision Discharge Activity: No Restrictions Follow Up Care Test Results: Test results from this visit will be discussed in further detail at your follow-up appointment, if applicable. Discharge Plan Admission Admit Date/Time: 01/25/25 17:50 Primary Reason for Your Visit: shortness of breath and cough Attending Provider: Rashi Yost Primary Care Provider: Gurvinder Physician,No Primary Consulting Providers: Bacilio Garcia; Cayden Amaya; Ti Hernandez; Juaquin Oquendo; Donna Oneal; Alina Peterson; Bubba Holly; Elizabeth Peralta; Tello Morales; Rylie Foster; Jesus Corbett; Dhruv Dickson; Sheila Thomas; Hossein Galindo ; Sean Hastings; Mode Banegas; Comfort Mitchell; Rosalina Mendoza; Sandra Alas; Cathleen Arguelles; Chloe Ward ; Tanner Barlow; Maria Teresa Youssef; Amna Trotter; Sharon Mcnulty; Lisa Hammer; Maria Teresa Justice; Richie Tian; Eder Hawthorne; Jarad Gruber; Edson Holloway; Casey Kenyon; Bola Dacosta; Castillo Cabrera; Eulalia,Kyra; Bryan,Roma; Majose,Samih; Andres Julio; Pancroderick,Oz; Turfe,Rolan; Neftaly Ruvalcaba; Sae Levi ; Abhishek Reece; Nicole Gonzalez NP; Marlene Carpenter; Jordyn Diamond Discharge Orders/Prescriptions Prescriptions: New benzonatate 100 mg Capsule 100 mg PO Q4H PRN PRN (Reason: Cough) 5 Days Qty: 30 0RF amoxicillin-pot clavulanate 875-125 mg tablet 1 tab PO BID 21 Days Qty: 42 0RF doxycycline hyclate 100 mg tablet 100 mg PO BID 21 Days Qty: 42 0RF Continued lisinopril 40 mg tablet 40 mg PO DAILY Referrals / Follow Up: Juaquin Oquendo DO [Med Staff - Active Staff, Pulmonary Medicine] Care Physician,No Primary [Primary Care Provider, Medical] Disposition Disposition (needs filled in before D/C Order can be placed): Home, Self Care 01/28/25 0907 Rashi Hernadezsurendra PALACIO CC: CHIEF SERVICE OBSERVER-C iNcole Gonzalez; Dr. Cayden Amaya MD; Dr. Bacilio Garcia MD; Dr. Ti Hernandez MD; Dr. Donna Oneal MD; Dr. Juaquin Oquendo DO; Dr. Bubba Holly MD; Dr. Alina Peterson DO; Dr. Elizabeth Peralta MD; Dr. Tello Morales MD; Dr. Jesus Corbett MD; Dr. Comfort Mitchell MD; Dr. Sean Hastings MD; Dr. Dhruv Dickson MD; Dr. Sheila Thomas MD; Dr. Hossein Galindo MD; Dr. Mode Banegas MD; Dr. Rosalina Mendoza MD; Dr. Sandra Alas MD; Dr. Cathleen Arguelles MD; Dr. Sharon Mcnulty MD; Dr. Amna Trotter MD; Dr. Tanner Barlow MD; Dr. Lisa Hammer DO; Dr. Maria Teresa Youssef MD; Dr. Maria Teresa Justice MD; Dr. Chloe Ward DO; Dr. Richie Tian DO; Dr. Jordyn Diamond MD; Dr. Jaard Gruber MD; Dr. Eder Hawthorne MD; Dr. Nick Holloway; Dr. Casey Kenyon MD; Dr. Wes Pérez MD; Dr. Roma Adams MD; Dr. Kyra Esteban MD; Dr. Castillo Cabrera MD; Dr. Bola Dacosta DO; Dr. Oz Benedict MD; Dr. Rolan Barron MD; Dr. Andres Julio DO; Dr. Sea Levi MD; Dr. Neftaly Ruvalcaba MD; Dr. Abhishek Reece MD; Dr. Junie Foster MD; Marlene Carpenter NP; No Primary Care Physician Signed Normal [facility] Folates, RBCon 01-28-2025 Fol.,Hemolysate 475.0 ng/mL Normal Not Estab. [facility] Comment on above: Order Comment: ok to add on Performed By: #### L 3100.1725 #### [facility] [address] [place], [address] Folate, RBC 1466 ng/mL Normal >498 [facility] Comment on above: Order Comment: ok to add on Result Comment: Perf ormed at: - [facility] [address] [id number] Information Director: Hernandez Silva PhD, Phone: [phone] Performed By: #### L 3100.1725 #### [facility] [address] [place], [address] Hematocrit (Bld) [Volume fraction] 32.4 % Low 37.5-51.0 [facility] Comment on above: Order Comment: ok to add on Performed By: #### L 3100.1725 #### [facility] [address] [place], [address] Basic Metabolic Profile (BMP )on 01-26-2025 BUN/CRE 15.2 RATIO Normal 10-20 [facility] Comment on above: Performed By: #### L 500.2500, L100.0100 #### [facility] [address] [place], [address] Calcium [Mass/Vol] 8.6 mg/dL Normal 7.6-11.[address] [facility] Comment on above: Performed By: #### L 500.2500, L100.0100 #### [facility] [address] [place], [address] Chloride [Moles/Vol] 103 mmol/L Normal 98-108 [facility] Comment on above: Performed By: #### L 500.2500, L100.0100 #### [facility] [address] [place], [address] CO2 [Moles/Vol] 24.1 mmol/L Normal 21.0-32.0 [facility] Comment on above: Performed By: #### L 500.2500, L100.0100 #### [facility] [address] [place], [address] Creatinine [Mass/Vol] 0.63 mg/dL Low 0.70-1.20 [facility] Comment on above: Performed By: #### L 500.2500, L100.0100 #### [facility] [address] [place], [address] ECRCL 142.48 ml/min Normal 50-250 [facility] Comment on above: Performed By: #### L 500.2500, L100.0100 #### [facility] [address] [place], [address] GAP 10 Normal 5-15 [facility] Comment on above: Performed By: #### L 500.2500, L100.0100 #### [facility] [address] [place], [address] GFR/1.73 sq M.predicted among non-blacks MDRD (S/P/Bld) [Vol rate/Area] 107 mL/min/{1.73_m2} Normal >60 [facility] Comment on above: Result Comment: mL/m in/1.73m2 CKD-EPI Creatinine Equation (2020) Performed By: #### L 500.2500, L100.0100 #### [facility] [address] [place], [address] Glucose [Mass/Vol] 131 mg/dL High 70-[address] [facility] Comment on above: Performed By: #### L 500.2500, L100.0100 #### [facility] [address] [place], [address] Potassium [Moles/Vol] 4.2 mmol/L Normal 3.3-5.1 [facility] Comment on above: Performed By: #### L 500.2500, L100.0100 #### [facility] [address] [place], [address] Sodium [Moles/Vol] 137 mmol/L Normal 133-[address] [facility] Comment on above: Performed By: #### L 500.2500, L100.0100 #### [facility] [address] [place], [address] Urea nitrogen [Mass/Vol] 9 mg/dL Normal 4-19 [facility] Comment on above: Performed By: #### L 500.2500, L100.0100 #### [facility] [address] [place], [address] CBC W/Diff, Automatedon 10-2 -2024 Absolute Lymph 1.62 X10 3/uL Normal 0.83-4.51 [facility] Comment on above: Performed By: #### L 500.2500, L100.0100 #### [facility] [address] [place], [address] Absolute Neut 9.8 X10 3/uL High 2.0-7.7 [facility] Comment on above: Performed By: #### L 500.2500, L100.0100 #### [facility] [address] [place], [address] Basophils/100 WBC (Bld) 0.5 % Normal 0-1 [facility] Comment on above: Performed By: #### L 500.2500, L100.0100 #### [facility] [address] [place], [address] Eosinophils/100 WBC (Bld) 1.0 % Normal 0-5 [facility] Comment on above: Performed By: #### L 500.2500, L100.0100 #### [facility] [address] [place], [address] Erythrocyte distribution width (RBC) [Ratio] 13.5 % Normal 11.6-14.6 [facility] Comment on above: Performed By: #### L 500.2500, L100.0100 #### [facility] [address] [place], [address] Hematocrit (Bld) [Volume fraction] 32.8 % Low 40-54 [facility] Comment on above: Performed By: #### L 500.2500, L100.0100 #### [facility] [address] [place], [address] Hemoglobin (Bld) [Mass/Vol] 10.7 g/dL Low 13.0-16.5 [facility] Comment on above: Performed By: #### L 500.2500, L100.0100 #### [facility] [address] [place], [address] IG% 0.400 Normal 0.0-0.9 [facility] Comment on above: Result Comment: IG% - Immature Granulocytes (promyelocytes, myelocytes and metamyelocytes) > 1% indicates that a LEFT SHIFT is Present. Performed By: #### L 500.2500, L100.0100 #### [facility] [address] [place], [address] Lymphocytes/100 WBC (Bld) 12.9 % Low 19-41 [facility] Comment on above: Performed By: #### L 500.2500, L100.0100 #### [facility] [address] [place], [address] MCH (RBC) [Entitic mass] 29.6 pg Normal 27.0-32.0 [facility] Comment on above: Performed By: #### L 500.2500, L100.0100 #### [facility] [address] [place], [address] MCHC (RBC) [Mass/Vol] 32.6 g/dL Normal 32-36 [facility] Comment on above: Performed By: #### L 500.2500, L100.0100 #### [facility] [address] [place], [address] MCV (RBC) [Entitic vol] 90.6 fL Normal 80-94 [facility] Comment on above: Performed By: #### L 500.2500, L100.0100 #### [facility] [address] [place], [address] Monocytes/100 WBC (Bld) 7.1 % Normal 0-10 [facility] Comment on above: Performed By: #### L 500.2500, L100.0100 #### [facility] [address] [place], [address] Neutrophils/100 WBC (Bld) 78.1 % High 47-70 [facility] Comment on above: Performed By: #### L 500.2500, L100.0100 #### [facility] [address] [place], [address] Nucleated RBC (Bld) [#/Vol] 0 10*3/uL Normal 0-5 [facility] Comment on above: Performed By: #### L 500.2500, L100.0100 #### [facility] [address] [place], [address] Platelet mean volume (Bld) [Entitic vol] 9.2 fL Normal 6.2-12.0 [facility] Comment on above: Performed By: #### L 500.2500, L100.0100 #### [facility] [address] [place], [address] Platelets (Bld) [#/Vol] 441 10*3/uL Normal 150-450 [facility] Comment on above: Performed By: #### L 500.2500, L100.0100 #### [facility] [address] [place], [address] RBC (Bld) [#/Vol] 3.62 10*6/uL Low 4.6-6.2 [facility] Comment on above: Performed By: #### L 500.2500, L100.0100 #### [facility] [address] [place], [address] RDW SD 45.3 fl High 35.1-43.9 [facility] Comment on above: Performed By: #### L 500.2500, L100.0100 #### [facility] [address] [place], [address] WBC (Bld) [#/Vol] 12.5 10*3/uL High 4.4-11.0 [facility] Comment on above: Performed By: #### L 500.2500, L100.0100 #### [facility] [address] [place], [address] Consultation - Intensiviston 01-26-2025 Consultation - Apartment Maintenance [facility] Medical Records Department [address] [place] [address] Consultation - Apartment Maintenance 01/26/25 1200 MR#: [id number] Acct: [id number] Name: DONNA PRADO Rep #: [id number] : 1960 64 From: Juaquin Oquendo DO PCP: Care Physician,No Primary Status:ADM IN [facility] Assessment Plan Assessment/Plan (1) 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 Continue IV antimicrobial therapy for now. 2. At discharge, we will plan to transition the patient to Augmentin and doxycycline to complete an additional 3 to 4 weeks of therapy. 3. The patient will need to follow-up in the pulmonary medicine clinic after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 Marker Relationship Specialty Start Date End Date Arlyn Girard APRN.FOUR H AGENT [address] [place] [phone] PCP - General Internal Medicine 03/12/22 Dress Marker Relationship Specialty Start Date End Date Arlyn Girard APRN.FOUR H AGENT [address] [place] [phone] PCP - General Internal Medicine 03/12/22 (unrecognized sect ion and content) No Status Records FoundNo Status Records Found INFORMATION SOURCE (unrecogn ized section and content) DATE CREATED AUTHOR 01/11/2025 [facility] DATE CREATED AUTHOR 'S NICOLEIZ ATROSARIO 02/08/2025 [facility] FOR RECORDS PERTAINING TO PATIENTS WHO ARE [...] BE BASED ON THE PRIMARY CLINICAL RECORDS. [facility]. provides no warranty or guarantee of the accuracy or completeness of information in this document.
== END 2025-02-08 15:02 | disposition home or self-care (01) ==
PROVIDERS: Emergency Provider Emergency Medicine; Visit Provider Emergency Medicine
DX: J85.2 Abscess of lung without pneumonia (principal); R04.2 Hemoptysis; I10 Essential (primary) hypertension; Z79.899 Other long term (current) drug therapy; F17.210 Nicotine dependence, cigarettes, uncomplicated
CPT/HCPCS: 71045; 80048; 85025; 99284; A4216

== ENCOUNTER → 2025-02-28 | Outpatient (CLI) | payer SELFPAY ==
[2025-02-28 13:26] VITALS: PULSE 100; PULSE 104; PULSE 105; PULSE 106; PULSE 109; O2SAT 98; O2SAT 99
--- NOTE | 2025-03-04 09:25 | PCM.PSN.6M ---
PSN 6 Minute Walk Test 6 Minute Walk Test 6 Minute Walk Test: 6 Minute Walk Test PSN:6-Minute Walk Test Start: 02/28/25 13:26 Freq: Status: Active Protocol: [id number] Document 02/28/25 13:26 JOSS (Rec: 02/28/25 13:28 TONEON [id number]) 6 Minute Walk Test Date Performed 02/28/25 Time Performed 13:15 Height 6 ft Weight: 192 lb Weight in Pounds 192.[address]: Marlene Carpenter Assistive device None used: Pre-test Oxygen Delivery Room Air Method Pulse Ox (%) 99 Pulse Rate (60-100 100 beats/min) Dyspnea Alireza Scale ( 0 0-10) Exertion Alireza Scale 6 (6-20) 1st minute Oxygen Delivery Room Air Method Pulse Ox (%) 99 Pulse Rate (60-100 104 H beats/min) 2nd minute Oxygen Delivery Room Air Method Pulse Ox (%) 98 Pulse Rate (60-100 105 H beats/min) 3rd minute Oxygen Delivery Room Air Method Pulse Ox (%) 98 Pulse Rate (60-100 105 H beats/min) 4th minute Oxygen Delivery Room Air Method Pulse Ox (%) 99 Pulse Rate (60-100 106 H beats/min) 5th minute Oxygen Delivery Room Air Method Pulse Ox (%) 98 Pulse Rate (60-100 109 H beats/min) 6th minute Oxygen Delivery Room Air Method Pulse Ox (%) 99 Pulse Rate (60-100 109 H beats/min) Dyspnea Alireza Scale ( 1 0-10) Exertion Alireza Scale 11 (6-20) Post-test Oxygen Delivery Room Air Method Pulse Ox (%) 99 Pulse Rate (60-100 100 beats/min) Full Laps Walked 18 Partial Lap, Number 18 of Tiles Walked Total Distance 1080 Walked (ft) Interpretation Interpretation: The patient ambulated 1080 feet over the course of 6 minutes beginning on room air without assistive devices. Pretesting oxygen saturation was noted to be 99% on room air. With ambulation, the maria oxygen saturation was 98%. There was no significant exertional oxygen desaturation. Recommendations Recommendations: There is no indication for the use of supplemental oxygen at this time.
== END | disposition home or self-care (01) ==
PROVIDERS: Referring Provider Nurse Practitioner Family; Visit Provider Nurse Practitioner Family
DX: R05.9 Cough, unspecified (principal)
CPT/HCPCS: 94618

== ENCOUNTER → 2025-03-01 | Outpatient (CLI) | payer SELFPAY ==
--- NOTE | 2025-03-01 13:45 | CT_ITS ---
PROCEDURE: CHEST WITHOUT CONTRAST 03/01/2025 REASON FOR EXAM: ABNORMAL CHEST CT TECHNIQUE: Chest CT without contrast. Coronal and Sagittal reconstruction series were provided. One or more dose reduction techniques were used (e.g., Automated exposure control, adjustment of the mA and/or kV according to patient size, use of iterative reconstruction technique RADIATION DOSE SUMMARY: CTDlvol: 12.96 mGy DLP: 479.29 mGycm COMPARISON: 01/25/2025 FINDINGS: Emphysematous changes. Irregular thick-walled cavitary mass in the left suprahilar region currently measures 9.9 x 5.9 cm series 2, image 29. Overall the mass appears slightly contracted compared to 01/25/2025. A 1.4 cm adjacent nodule is seen along the anterior aspect of fissure image 42. Ground-glass nodularity at the medial anterior left upper lobe series 4 image 60 through 71. Grossly stable left hilar lymphadenopathy. Scattered mediastinal lymph nodes are also stable. No pleural effusion. There is no significant cardiomegaly. Coronary artery calcifications. Healed sternal fracture. Small hiatal hernia. CT/Chest without Contrast IMPRESSION: 1. Left suprahilar thick walled cavitary mass has slightly contracted in size c ompared to 01/25/2025. 2. A 1.4 cm nodule inferolateral to the above-described mass is not appreciated on prior study, although may have been obscured by the large mass. Close attention on follow-up imaging. 3. Ground-glass nodularity in anterior lingula. Reading Location: [id number]
== END | disposition home or self-care (01) ==
PROVIDERS: Referring Provider Nurse Practitioner Family; Visit Provider Nurse Practitioner Family
DX: J98.4 Other disorders of lung (principal); R05.9 Cough, unspecified
CPT/HCPCS: 71250; 94060; 94726; 94729